=== PATIENT | male | born 1970 | race Caucasian/White ===

== ENCOUNTER → 2018-10-01 | Outpatient (CLI) | payer OTHER ==
--- NOTE | 2018-10-01 10:47 | REP ---
SCROTAL ULTRASOUND: Real-time sonographic evaluation of the scrotum and contents performed. Testicles are normal in size and echotexture, right testicle measuring 5.8 x 3.3 x 3.6 cm and left testicle 6.4 x 3.1 x 3.4 cm. There is no suspicious testicular mass and no evidence of testicular torsion, RI right testicle 0.56 and left testicle 0.60. There is a 3 mm cyst in the mid left testicle. Right epididymis could not be visualized. There is a 3 mm cyst in the head of the left epididymis. There is a large right hydrocele. There is a small left hydrocele. IMPRESSION: Large right hydrocele. No suspicious testicular mass. No torsion. Electronically Signed by Gabriel Parsons MD 10/04/2018 07:05 P
== END ==
LOC: M RAD 08:30
PROVIDERS: ATTEND Nurse Practitioner Family
DX: N43.3 Hydrocele, unspecified (principal)

== ENCOUNTER → 2020-01-05 | Outpatient (CLI) | payer OTHER ==
--- NOTE | 2020-01-05 10:26 | REP ---
INDICATION: HYDROCELE COMPARISON: 10/01/2018 TECHNIQUE: Parsons scale and color Doppler evaluation using linear and curved array transducer with color Doppler evaluation. FINDINGS: A large simple right hydrocele is again identified and unchanged. The bilateral testicles are essentially normal in size, vascularity, and echotexture without evidence for torsion, mass lesion, or infectious/inflammatory process. The left testicle again demonstrates 4 mm likely incidental cyst. The right epididymis is not identifiable likely due to mass effect from the large hydrocele. The left epididymis appears normal and the previously noted 3 mm left epididymal cyst is not visualized on current examination. Right testicle measures 5.8 x 3.3 x 3.6 cm cm. Left testicle measures 6.4 x 3.1 x 3.4 cm cm. IMPRESSION: Stable examination with large right hydrocele again noted as well as 4 mm stable likely incidental benign left testicular cyst. <Electronically signed by Lee Malagon > 01/05/20 [id number]
== END ==
LOC: M RAD 09:33
PROVIDERS: ATTEND Nurse Practitioner Family
DX: N43.3 Hydrocele, unspecified (principal); N44.2 Benign cyst of testis

== ENCOUNTER → 2020-02-18 | Outpatient (CLI) | payer OTHER ==
[~2020-02-18] MED LIST: AMLO1TAB24 PO; ATOR40TA75 PO; BENA40TA5 PO; ECOT81TA5 PO; HYDR25TAB PO; METO1TAB7 PO; MULTCAP PO; OXYC1TAB23 PO
== END ==
LOC: M LABSMTC 10:54
PROVIDERS: ATTEND Anesthesiology
DX: Z01.812 Encounter for preprocedural laboratory examination (principal); Z20.828 Contact with and (suspected) exposure to other viral communicable diseases

== ENCOUNTER 2020-02-23 06:14 | Day surgery (SDC) | payer OTHER ==
[~2020-02-23] VITALS: Ht 177.8 cm; Wt 134.3 kg
[~2020-02-23 06:14] MED LIST changes: +LIDOCAINE 1% MDV 20ML VIAL SQ PRN; -OXYC1TAB23 PO
[2020-02-23] MEDS ORDERED: ceFAZolin SOD 2 GM in IV 1 EA IV ONE (07:00)
[2020-02-23] MEDS ORDERED: LR 1,000 ML IV ONE (07:00)
[2020-02-23] MEDS ORDERED: ceFAZolin SOD 1 GM in D5W MINI-BAG PLUS 50 ML IV ONE (07:00)
[2020-02-23 07:01] LABS: HEMATOCRIT 48.5 % (42.0-52.0); HEMOGLOBIN 16.5 g/dl (13.5-17.5); MEAN CORPUSCULAR HEMOGLOBIN 30.1 pg (27.0-33.0); MEAN CORPUSCULAR VOLUME 88.3 fl (80.0-96.0); PLATELET COUNT, AUTOMATED 148 10^3/uL (150-450); RED BLOOD COUNT 5.49 10^6/uL (4.30-6.10); WHITE BLOOD COUNT 5.7 10^3/uL (4.0-10.0)
[2020-02-23 07:12] LABS: INR 1.02; PROTHROMBIN TIME 13.6 SECONDS (12.5-14.3)
[2020-02-23] MEDS ORDERED: BUPIVACAINE HCL 0.25% 30ML VIAL As Ordered ONE (07:18)
[2020-02-23] MEDS ORDERED: LIDOCAINE 1% SDV 30ML VIAL As Ordered ONE (07:18)
[2020-02-23] MEDS ORDERED: BACITRACIN OINTMENT 30GM TUBE As Ordered ONE (07:28)
[2020-02-23] MEDS ORDERED: OXYC1TAB23 PO (07:37)
[2020-02-23] MEDS ORDERED: SUGAMMADEX SODIUM 500 MG/5 ML VIAL (BRIDION) As Ordered ONE (08:32)
[2020-02-23] MEDS ORDERED: ACETAMINOPHEN 1000MG 100ML IV BTL (OFIRMEV) (J0131 PER 10MG) As Ordered ONE (08:32)
[2020-02-23] MEDS ORDERED: fentaNYL 100 MCG/2 ML INJECTION (J3010) As Ordered ONE (08:40)
[2020-02-23] MEDS ORDERED: PERCOCET 5MG/325MG TAB As Ordered ONE (09:26)
[2020-02-23] MEDS ORDERED: oxyCODONE 5MG TAB As Ordered ONE (09:33)
[2020-02-23] MEDS ORDERED: METOCLOPRAMIDE INJ 10MG/2ML VIAL (J2765 PER 1) IV PRN (09:45)
[2020-02-23] MEDS ORDERED: fentaNYL 100 MCG/2 ML INJECTION (J3010) IV PRN (09:45)
[2020-02-23] MEDS ORDERED: ONDANSETRON 4MG/2ML VIAL IV PRN (09:45)
[2020-02-23] MEDS ORDERED: LR 1,000 ML IV SCH (09:45)
[2020-02-23] MEDS ORDERED: MORPHINE 2 MG/ML 1ML VIAL (J2270) IV PRN (09:45)
[2020-02-23] MEDS ORDERED: oxyCODONE 5MG TAB PO ONE (09:45)
[2020-02-23] MEDS ORDERED: PERCOCET 5MG/325MG TAB PO PRN ×2 (09:45)
--- NOTE | 2020-02-23 10:47 | RO ---
OPERATIVE NOTE DATE OF OPERATION: 02/23/2020 PREOPERATIVE DIAGNOSIS: Right hydrocele. POSTOPERATIVE DIAGNOSIS: Right hydrocele. PROCEDURE: Right hydrocelectomy. SURGEON: Wale Lynn MD [employer] MACHINE OPERATOR: None. ANESTHESIA: General. OPERATIVE INDICATIONS: This is a 49-year-old male with a large symptomatic right hydrocele here today for treatment. DESCRIPTION OF PROCEDURE: The patient was brought to the operating room and general anesthesia was induced. Prophylactic antibiotics were induced. He was placed in the supine position and prepped and draped in the usual sterile fashion. At this point, an approximately 7 cm transverse incision was made over the right hemiscrotum. I then dissected down through the scrotal wall layers. The testicle was then delivered outside of the right hemiscrotum and the tunica vaginalis. The tunica vaginalis was then punctured and then, approximately 800 mL of [place] colored fluid was drained from the hydrocele. The tunica vaginalis was then excised using [place] electrocautery. Once the tunica vaginalis was removed, the wall of the hydrocele sac was sent off to pathology. I then over-sewed the edges of the tunica vaginalis with running 3-0 Vicryl suture. Once that was done, I checked for hemostasis and areas of bleeding were controlled with electrocautery. Once satisfied with hemostasis, the testicle was then delivered back inside the right hemiscrotum in its normal anatomic position. At this point, the dartos was closed with a running 2-0 Vicryl suture. The skin was reapproximated with interrupted 2-0 Chromic sutures. This then marked conclusion of the procedure. The patient was then awakened from anesthesia. Dressings were then applied. Then, the patient was transferred to the recovery room in stable condition. ESTIMATED BLOOD LOSS: 10 mL. COMPLICATIONS: None. SPECIMENS: Right hydrocele sac. PLAN: The patient will follow-up in the urology clinic in approximately two to three weeks for a postoperative visit.
[2020-02-23 11:33] VITALS: BP 169/96
== END 2020-02-23 11:33 | disposition home or self-care (01) ==
LOC: M SDC 06:14
PROVIDERS: ATTEND Urology
DX: N43.3 Hydrocele, unspecified (principal); I10 Essential (primary) hypertension; G47.30 Sleep apnea, unspecified; Z79.82 Long term (current) use of aspirin; Z79.899 Other long term (current) drug therapy
CPT/HCPCS: 36415; 55040; 85027; 85610; 88302; J0131; J0690; J3010

== ENCOUNTER → 2020-10-28 | Outpatient (CLI) | payer OTHER ==
[~2020-10-28] MED LIST changes: +HYDR-3490 PO; -HYDR25TAB PO; -LIDOCAINE 1% MDV 20ML VIAL SQ PRN; +MULT1TAB74 PO; +OXYC1TAB23 PO
== END ==
LOC: M LABSMTC 08:57
PROVIDERS: ATTEND Anesthesiology
DX: Z01.812 Encounter for preprocedural laboratory examination (principal); Z20.822 Contact with and (suspected) exposure to COVID-19

== ENCOUNTER 2020-11-02 10:31 | Day surgery (SDC) | payer OTHER ==
[~2020-11-02] VITALS: Ht 177.8 cm; Wt 116.1 kg
[~2020-11-02 10:31] MED LIST changes: +NS 1,000 ML IV ONE
[2020-11-02] MEDS ORDERED: propofoL 200 MG/20 ML VIAL As Ordered ONE (12:35)
--- NOTE | 2020-11-02 12:41 | ROOR ---
Patient Name: Benitez Hernandez Procedure Date: 11/02/2020 12:21 PM Date of : 1970 Age: 50 Room: [facility] Gender: Male Note Status: Finalized Procedure: Colonoscopy Indications: Screening in patient at increased risk: Family history of 1st-degree relative with colorectal cancer before age 60 years Providers: Garret Coughlin Jr, MD Referring MD: LORA HOLLAND MD Requesting Provider: Medicines: Propofol per Anesthesia Complications: No immediate complications. Procedure: Pre-Anesthesia Assessment: - Prior to the procedure, a History and Physical was performed, and patient medications and allergies were reviewed. The patient is competent. The risks and benefits of the procedure and the sedation options and risks were discussed with the patient. All questions were answered and informed consent was obtained. Patient identification and proposed procedure were verified by the physician and the nurse in the pre-procedure area and in the procedure room. Mental Status Examination: alert and oriented. Airway Examination: normal oropharyngeal airway and neck mobility. Respiratory Examination: clear to auscultation. CV Examination: normal. ASA Grade Assessment: II - A patient with mild systemic disease. After reviewing the risks and benefits, the patient was deemed in satisfactory condition to undergo the procedure. The anesthesia plan was to use moderate sedation / analgesia (conscious sedation). Immediately prior to administration of medications, the patient was re-assessed for adequacy to receive sedatives. The heart rate, respiratory rate, oxygen saturations, blood pressure, adequacy of pulmonary ventilation, and response to care were monitored throughout the procedure. The physical status of the patient was re-assessed after the procedure. The Colonoscope was introduced through the anus and advanced to the cecum, identified by appendiceal orifice and ileocecal valve. The colonoscopy was performed without difficulty. The patient tolerated the procedure well. The quality of the bowel preparation was adequate. Findings: Four polyps were found in the rectum, sigmoid colon and transverse colon. The polyps were small in size. These polyps were removed with a cold snare. Resection was complete, but the polyp tissue was only partially retrieved. The recto-sigmoid colon, descending colon, transverse colon, cecum, appendiceal orifice and ileocecal valve appeared normal. Impression: - Four small polyps in the rectum, in the sigmoid colon and in the transverse colon, removed with a cold snare. Complete resection. Partial retrieval. - The recto-sigmoid colon, descending colon, transverse colon, cecum, appendiceal orifice and ileocecal valve are normal. Recommendation: - Discharge patient to home (ambulatory). - Repeat colonoscopy in 5 years for surveillance. Procedure Code(s): --- Professional --- 97379, Colonoscopy, flexible; with removal of tumor(s), polyp(s), or other lesion(s) by snare technique Diagnosis Code(s): --- Professional --- Z80.0, Family history of malignant neoplasm of digestive organs K62.1, Rectal polyp K63.5, Polyp of colon CPT copyright 2019 [employer]. All rights reserved. The codes documented in this report are preliminary and upon overnight associate review may be revised to meet current compliance requirements. Garret Coughlin MD Garret Coughlin Jr, MD 11/02/2020 12:41:33 PM Electronically signed by Garret Coughlin Jr, MD Number of Addenda: 0 Note Initiated On: 11/02/2020 12:21 PM Estimated Blood Loss: Estimated blood loss: none.
[2020-11-02 13:00] VITALS: BP 164/82
== END 2020-11-02 13:01 | disposition home or self-care (01) ==
LOC: M OPP 10:31
PROVIDERS: ATTEND Surgery
DX: Z12.11 Encounter for screening for malignant neoplasm of colon (principal); Z80.0 Family history of malignant neoplasm of digestive organs; D12.6 Benign neoplasm of colon, unspecified; Z79.82 Long term (current) use of aspirin; Z79.899 Other long term (current) drug therapy; G47.30 Sleep apnea, unspecified

== ENCOUNTER → 2021-02-20 | Outpatient (CLI) | payer OTHER ==
[~2021-02-20] MED LIST changes: -NS 1,000 ML IV ONE
[2021-02-20 19:49] LABS: BLOOD UREA NITROGEN 17 MG/DL (7-18); CALCIUM LEVEL 9.3 MG/DL (8.5-10.1); CARBON DIOXIDE LEVEL 30 MEQ/L (21-32); CHLORIDE LEVEL 106 MEQ/L (98-107); CREATININE FOR GFR 0.99 MG/DL (0.70-1.30); GLOMERULAR FILTRATION RATE > 60.0 (>56); GLUCOSE, FASTING 95 MG/DL (70-100); PHOSPHORUS LEVEL 3.1 MG/DL (2.5-4.9); SODIUM LEVEL 144 MEQ/L (136-145); URIC ACID 7.6 MG/DL (3.5-7.2)
== END ==
LOC: M WUC 15:37
PROVIDERS: ATTEND Physician Assistant
DX: M10.9 Gout, unspecified (principal)

== ENCOUNTER → 2022-01-07 | Outpatient (CLI) | payer OTHER ==
[~2022-01-07] MED LIST changes: -BENA40TA5 PO; +BENA40TA84 PO
[2022-01-07 13:46] LABS: ALBUMIN 4.5 GM/DL (3.2-5.2); ALT/SGPT 85 U/L (12-78); BLOOD UREA NITROGEN 13 MG/DL (7-18); CALCIUM LEVEL 10.3 MG/DL (8.5-10.1); CARBON DIOXIDE LEVEL 30 MEQ/L (21-32); CHLORIDE LEVEL 107 MEQ/L (98-107); GLOMERULAR FILTRATION RATE > 60.0 (>56); GLUCOSE, FASTING 108 MG/DL (70-100); SODIUM LEVEL 140 MEQ/L (136-145); TOTAL PROTEIN 7.6 GM/DL (6.4-8.2)
== END ==
LOC: M WUC 09:04
PROVIDERS: ATTEND Internal Medicine
DX: E78.5 Hyperlipidemia, unspecified (principal); I10 Essential (primary) hypertension

== ENCOUNTER 2022-11-07 07:58 | Emergency (ER) | payer OTHER ==
[~2022-11-07] VITALS: Ht 177.8 cm; Wt 134.1 kg
[2022-11-07] MEDS ORDERED: NAPR220C14 PO (08:06)
[2022-11-07] MEDS ORDERED: ACETAMINOPHEN 325 MG TAB PO ONE (08:50)
[2022-11-07] MEDS ORDERED: LIDOCAINE 5% (LIDODERM) PATCH TD ONE (08:50)
[2022-11-07] MEDS ORDERED: methocarbamoL 750 MG TAB PO ONE (08:50)
[2022-11-07] MEDS ORDERED: CYCL-707 PO (10:53)
[2022-11-07] MEDS ORDERED: KETO10TAB PO (10:53)
[2022-11-07] MEDS ORDERED: ASPE4PAD TOP (10:53)
[2022-11-07 11:18] VITALS: BP 127/71; TEMP 97.3; O2SAT 96
== END 2022-11-07 11:21 | disposition home or self-care (01) ==
LOC: M ED 07:58
DX: S39.012A Strain of muscle, fascia and tendon of lower back, initial encounter (principal); Z79.82 Long term (current) use of aspirin; Z79.899 Other long term (current) drug therapy